=== PATIENT | male | born 2000 | race Caucasian/White ===

== ENCOUNTER 2021-04-22 17:24 | Inpatient (IN) ==
[2021-04-22] MEDS ORDERED: SODIUM CHLORIDE 0.9% 1000ML 2,000 ML IV ONE (17:45)
--- NOTE | 2021-04-22 18:07 | History & Physical Report ---
Date of Service April 22, 2021 Assessment & Plan (1) Exertional rhabdomyolysis: Plan: 21 yo male who comes in with exertional rhabdomyolysis after extensive weight training this past week. CK is over 20K Will place on IVF and monitor urine output and electrolytes Check CK in AM. History of Present Illness Chief Complaint: msucle pain. Primary Care Provider: Lurdes Whitehead, DO 21 yo male who has history of rhabdomyolisis. Patient had an episode of rhabdomyolysis in the past. Patient reports weight lifting this past week. Today he felt sore and decided to come into the ER. Allergies Allergy/AdvReac Type Severity Reaction Status Date / Time No Known Allergies Allergy Unverified 04/22/21 19:21 Home Medications Medication Instructions Recorded Confirmed Type hydroxyzine HCl 25 mg tablet 25 mg PO DAILY PRN 04/22/21 04/22/21 History Past Med/Surg History Medical History Anxiety History of rhabdomyolysis No pertinent family history Surgical History No pertinent past surgical history Social History Smoking Status: Current every day smoker Tobacco Type: E-cigarettes / Vaping Hx Alcohol Use: Yes Alcohol type: beer, wine and hard liquor Hx Substance Use: No Preferred Language: Kittitian Communication Ability: Effective Senior Communications Engineer Required: No Beliefs That Will Affect Care: None marital status: Single Current Living Situation: Alone Current Living Situation Comment: [employer] student, lives off campus in an apartment current occupational status: student Other Information That Helps Us Care for You: No Feels Safe at Home: Yes Safety Concerns: Feels Safe At This Time Assistive Devices: None Review of Systems Review of Systems: All systems reviewed & are unremarkable except as noted in HPI & below Physical Exam Constitutional: WD/WN, vitals as above Eyes: PERRL, conjunctivae normal, anicteric sclerae ENMT: external ear and nose normal, oropharynx normal Neck: trachea midline, no thyromegaly Respiratory: normal respiratory effort, lungs clear to auscultation Cardiovascular: RRR, no murmur, no edema Gastrointestinal (Abdomen): normal bowel sounds, soft, nontender, no hepatosplenomegaly Musculoskeletal: no cyanosis or clubbing, extremities motor strength 5/5 Skin: no rashes, warm and dry Neurologic: PERRL, EOMI, accommodation nl, no face palsy, no dysarthria Psychiatric: A+Ox3, euthymic affect Lymphatic: no cervical or axillary lymphadenopathy Results & Data Results & Data ([facility]) Vital Signs (Past 12 Hours) Vital Signs Temp Pulse Resp BP Pulse Ox 04/22/21 17:28 36.8 C 88 16 134/91 99 PG Care Time/CCT Total # of Minutes Spent Total Time Spent with Patient: Total time spent is greater than 50% in coordination of care (as documented) at patient's floor/unit and/or counseling patient: Coding Level of Care Code 74531 Initial Inpt Care Lvl 2 Diagnoses Exertional rhabdomyolysis M62.82
[2021-04-22] MEDS ORDERED: RACEPINEPHRINE 2.25% NEBU SOLN 0.5 ML VIAL ONE (18:46)
--- NOTE | 2021-04-22 19:29 | Emergency Department Note ---
History of Present Illness General Chief complaint: Abnormal Labs/Diagnostic Testing Stated complaint: ABNORMAL LABS Time Seen by Provider: 04/22/21 17:30 History of Present Illness Maximum Pain Intensity: 5 21-year-old male who presents to the emergency department for evaluation of possible rhabdomyolysis. The patient reports that he had some lab work done today that was abnormal with an elevated total creatinine kinase. These labs were ordered by [facility]. The patient reports that he last had rhabdomyolysis in June 2020 that required hospitalization for approximately 5 days. He is incidence of rhabdomyolysis at that time was caused by workouts. The patient reports that he has not done any significant workouts since last June, and started working out again 4 days ago. The patient did take a break on Monday, but continued with workouts on Monday. He reports lifting free weights, running and playing basketball. The patient reports overall generalized muscle cramps. He has not noticed any decreased urine output or dark appearance. He denies any focal abdominal pain, chest pain, shortness of breath or fevers. The patient rates his overall discomfort a 5 out of 10. Home Medications Medication Instructions Recorded Confirmed Type hydroxyzine HCl 25 mg tablet 25 mg PO DAILY PRN 04/22/21 04/22/21 History Allergies Allergy/AdvReac Type Severity Reaction Status Date / Time No Known Allergies Allergy Unverified 04/22/21 19:21 Past Med/Surg History Medical History Anxiety History of rhabdomyolysis No pertinent family history Surgical History No pertinent past surgical history Social History Smoking Status: Current every day smoker Tobacco Type: E-cigarettes / Vaping Hx Alcohol Use: Yes Alcohol type: beer, wine and hard liquor Hx Substance Use: No Preferred Language: Wolof Communication Ability: Effective Seed Service Advisor Required: No Beliefs That Will Affect Care: None marital status: Single Current Living Situation: Alone Current Living Situation Comment: [employer] student, lives off campus in an apartment current occupational status: student Other Information That Helps Us Care for You: No Feels Safe at Home: Yes Safety Concerns: Feels Safe At This Time Assistive Devices: None Review of Systems 10 system review was performed and was negative except for pertinent positives and negatives as indicated in history of present illness Physical Exam Vital Signs Vital Signs - 24 hr 04/22/21 17:28 Temperature 36.8 C Temperature Source Temporal Artery Scan Pulse Rate 88 Respiratory Rate 16 Respiratory Effort / Characteristics Non-Labored Spontaneous Respiratory Depth Normal Blood Pressure 134/91 Blood Pressure Mean 105 Pulse Oximetry 99 Oxygen Delivery Method Room Air Sepsis Recent Fever Within 48 Hours No Sepsis New/Unexplained Change in Mental Status N/A Sepsis Action Taken by Nursing No Action Required CONSTITUTIONAL: Healthy and well nourished. Alert and oriented X 3. Patient does not appear in any acute distress. HEENT: Normocephalic, atraumatic. Pupils equal, round and reactive. Mucous membranes are not dry. No scleral icterus or conjunctival injection/pallor. NECK: Full active range of motion without discomfort. LYMPHATICS: No cervical chain adenopathy. RESPIRATORY: Clear to auscultation bilaterally with no wheezing, crackles, rhonchi or stridor. CARDIOVASCULAR: Regular rate and rhythm with no murmurs, rubs or gallops. GASTROINTESTINAL: Bowel sounds present in all quadrants. Minimal and generalized abdominal tenderness to palpation. Negative CVA tenderness. No obvious hepatosplenomegaly. MUSCULOSKELETAL: Full range of motion of all joints without discomfort. INTEGUMENTARY: No rash or other significant dermatologic conditions noted. HEMATOLOGIC: No ecchymosis or petechiae. PSYCHIATRIC: Positive affect. NEUROLOGIC: No focal neurologic deficits noted. Course Course Patient history and physical exam were performed. Nurses notes were reviewed. Vital signs were reviewed and were normal. I did review previous outpatient labs that were completed this morning, showing elevated liver transaminases, with a total creatinine kinase of nearly 21,000. Urinalysis shows trace ketonuria and hematuria. Creatinine is normal. IV access was established, and the patient was hydrated with 2 L of normal saline. The case was further discussed with Dr. Mcgovern, ED attending physician[facility] and will be admitting the patient for rhabdomyolysis management. Please see their dictation for further treatment and final disposition. Administered Medications Lactated Ringer's (Lr) 1,000 mls @ 125 mls/hr IV .Q8H SUPRIYA Stop: 05/22/21 18:14 Last Admin: 04/22/21 19:57 Dose: 125 mls/hr Documented by: [id number] Discontinued Medications Epinephrine (Racepinephrine 2.25% Nebu Soln 0.5 Ml Vial) Confirm Administered Dose 0.5 ml .ROUTE .STK-MED ONE Stop: 04/22/21 18:47 Last Admin: 04/22/21 18:59 Dose: Not Given Documented by: [id number] Sodium Chloride (Nss 1000ml) 2,000 mls @ 999 mls/hr IV .Q2H1M ONE Stop: 04/22/21 19:45 Last Infusion: 04/22/21 20:21 Dose: 0 mls/hr Documented by: [id number] Admin: 04/22/21 18:21 Dose: 999 mls/hr Documented by: [id number] Medical Decision Making Medical Records Attestation: I reviewed the patient's medical records. Home Medications Current Medication List: was personally reviewed by me Laboratory Data Attestation: I reviewed the patient's lab results. Lab work from earlier today was reviewed, showing elevated total creatinine ki nase of nearly 21,000. Patient also has elevated liver transaminases. No evidence for acute kidney injury, electrolyte abnormality or leukocytosis, thrombocytopenia. Lab Results 04/22/21 Range/Units 19:30 SARS-CoV-2, RNA, NAAT NEGATIVE (NEGATIVE) Blood Pressure Blood Pressure Findings: Normal blood pressure MDM Narrative Patient presents the emergency department for evaluation of rhabdomyolysis. Patient does have an elevated total CK and liver transaminases, consistent with rhabdomyolysis. This was likely induced by his rather abrupt onset of workouts. The patient has had a prior history of rhabdomyolysis approximately 9 months ago. Operatory studies does not show evidence for acute kidney injury or other significant abnormalities. Impression & Plan Exertional rhabdomyolysis, Elevated liver enzymes, Elevated CPK, Myalgia Discharge Plan Visit Data Chief Complaint: Abnormal Labs/Diagnostic Testing Stated Complaint: ABNORMAL LABS ED Provider: Eliud Mcgovern ED Midlevel Provider: Jacky Powers Discharge Problem: Exertional rhabdomyolysis, Elevated liver enzymes, Elevated CPK, Myalgia Patient Disposition: Admitted As Inpatient Discharge Instructions Interventions: ED Discharge Assessment Last Done: 04/22/21 22:13
[2021-04-22] MEDS: LACTATED RINGER'S 1,000 ML IV SCH (19:57)
[2021-04-23] MEDS: LACTATED RINGER'S 1,000 ML IV SCH ×3 (03:10→18:35)
[2021-04-23 08:32] LABS: Anion Gap 4 (3-11); BUN Creatinine Ratio 9.6 (10-20); Blood Urea Nitrogen 7 mg/dl (6-23); Calcium 8.3 mg/dl (8.5-10.1); Carbon Dioxide 27 mmol/L (21-32); Chloride 110 mmol/L (98-107); Creatinine Clr Calc Pharmacy 139.2 ml/min; Est GFR (African American) > 150.0 ml/min; Est GFR (Non-African American) 132.6 ml/min; Glucose 83 mg/dl (70-99(Fasting)); Potassium 3.7 mmol/L (3.5-5.1); Sodium 141 mmol/L (136-145)
[2021-04-23 08:44] LABS: Creatine Kinase 21166 U/L (30-223)
[2021-04-23 10:45] LABS: Amphetamines+Metham, Urine Neg (Neg); Barbiturates, Urine Neg (Neg); Benzodiazepine, Urine Neg (Neg); Cocaine, Urine Neg (Neg); MDMA (Ecstacy), Urine Neg (Neg); Methadone, Urine Neg (Neg); Opiate, Urine Neg (Neg); Phencyclidine, Urine Neg (Neg)
[2021-04-23 15:03] LABS: BUN Creatinine Ratio 7.7 (10-20); Calcium 8.8 mg/dl (8.5-10.1); Creatinine Clr Calc Pharmacy 130.3 ml/min; Est GFR (African American) 149.6 ml/min; Potassium 4.1 mmol/L (3.5-5.1)
[2021-04-23 15:16] LABS: Albumin Globulin Ratio 1.7 (0.9-2); Albumin Level 3.8 gm/dl (3.4-5.0); Bilirubin,Total 0.4 mg/dl (0.2-1.0); Globulin 2.3 gm/dl (2.5-4.0); Magnesium 1.8 mg/dl (1.7-2.4); Phosphorus 4.2 mg/dl (2.5-4.9); Total Protein 6.1 gm/dl (6.0-8.3)
--- NOTE | 2021-04-23 17:03 | Hospitalist Progress Note ---
Date of Service April 23, 2021 Assessment & Plan (1) Exertional rhabdomyolysis: Plan: Patient is a 29-year-old male with a history of rhabdomyolysis, here with exertion rhabdomyolysis after lifting weights and a heavy workout 2 times this week. No history of rhabdomyolysis prior to 9 months ago, no other hospitalizations or major medical issues in his entire life Does report alcohol use has increased in the last year since he turned 21 with binge drinking for 5 times per week Potassium levels lower end of normal range on admission He drinks all water when he works out, but no electrolyte replacement CK 20,000 and now increased to 21,000 AST and ALT increased and also elevated slightly since previous No renal failure, electrolytes normal otherwise Do not suspect a genetic disorder or myopathy but could test for this as an outpatient-we will need genetic testing and muscle biopsy -Continue fluids with LR but increase 150 mL's per hour He is making plenty of urine -Follow CMP and CK again in the morning -Replace electrolytes as needed -Encouraged decreased intake of alcohol and increased intake of fluid with electrolytes during workout days (2) Elevated liver enzymes: Plan: As above, secondary to rhabdomyolysis Follow LFTs in the morning Plan: DVT prophylaxis-ambulation Disposition-continued stay, but could likely discharge to home with close outpatient follow-up if CPK trends down less than 10,000 Admission and Anticipated Discharge Date Admission Date: April 22, 2021 Subjective Patient feeling improved today, still some soreness in his muscles all over but not terrible. No swelling anywhere. Is urinating at least 20 times a day with very clear urine. Drinking lots of Powerade. No shortness of breath. No other complaints. Reports his workout was more than his usual as he tried to lift weights again for the first time in 9 months. Typically he can do core exercises and go running without any difficulties. Previous admission last year at outside hospital for rhabdomyolysis with CK 5000. No family history of rhabdomyolysis. Mom with Crohn's disease, dad with alcoholic liver cirrhosis, sister with MS Review of Systems Review of Systems: All systems reviewed & are unremarkable except as noted in HPI & below Physical Exam Constitutional: WD/WN, vitals as above Eyes: + anicteric sclerae ENMT: external ear and nose normal, oropharynx normal Neck: trachea midline, no thyromegaly Respiratory: normal respiratory effort, lungs clear to auscultation Cardiovascular: RRR, no murmur, no edema Chest (Breasts): Chest: normal inspection of chest Gastrointestinal (Abdomen): normal bowel sounds, soft, nontender, no hepatosplenomegaly Musculoskeletal: Extremities: extremities normal to inspection; no cyanosis and no clubbing Some mild tenderness to palpation in arms and legs and abdomen, no edema Skin: no rashes, warm and dry Neurologic: moves all extremities and awake; no focal motor deficits Psychiatric: A+Ox3, euthymic affect Lymphatic: no lymphedema Results & Data Results & Data ([facility]) Vital Signs (Past 12 Hours) Vital Signs Temp Pulse Resp BP Pulse Ox 04/23/21 15:33 36.8 C 78 16 129/70 99 04/23/21 07:46 36.4 C L 56 L 14 123/72 99 Laboratory Results 04/23/21 04/23/21 04/23/21 Range/Units 14:32 14:32 09:41 Sodium 142 (136-145) mmol/L Potassium 4.1 (3.5-5.1) mmol/L Chloride 108 H (98-107) mmol/L Carbon Dioxide 31 (21-32) mmol/L Anion Gap 3 (3-11) BUN 6 (6-23) mg/dl Creatinine 0.78 (0.6-1.4) mg/dl Est Cr Clr Drug Dosing 130.3 ml/min Est GFR ( Amer) 149.6 ml/min Est GFR (Non-Af Amer) 129.0 ml/min BUN/Creatinine Ratio 7.7 L (10-20) Glucose 78 (70-99(Fasting)) mg/dl Calcium 8.8 (8.5-10.1) mg/dl Phosphorus 4.2 (2.5-4.9) mg/dl Magnesium 1.8 (1.7-2.4) mg/dl Total Bilirubin 0.4 D (0.2-1.0) mg/dl AST 315 H (13-39) U/L ALT 78 H (7-52) U/L Alkaline Phosphatase 61 (34-104) U/L Total Creatine Kinase 85872 H (30-223) U/L Total Protein 6.1 (6.0-8.3) gm/dl Albumin 3.8 (3.4-5.0) gm/dl Globulin 2.3 L (2.5-4.0) gm/dl Albumin/Globulin Ratio 1.7 (0.9-2) TSH 2.434 (0.300-4.500) uIu/ml Urine Opiates Screen Neg (Neg) Ur Methadone, Qual Neg (Neg) Urine Barbiturates Neg (Neg) Ur Phencyclidine (PCP) Neg (Neg) U Amphetamin/Meth Scrn Neg (Neg) MDMA (Ecstasy) Screen Neg (Neg) U Benzodiazepines Scrn Neg (Neg) Ur Cocaine Metabolite Neg (Neg) U Marijuana (THC) Screen Neg (Neg) 04/23/21 Range/Units 07:31 Sodium 141 (136-145) mmol/L Potassium 3.7 (3.5-5.1) mmol/L Chloride 110 H (98-107) mmol/L Carbon Dioxide 27 (21-32) mmol/L Anion Gap 4 (3-11) BUN 7 (6-23) mg/dl Creatinine 0.73 (0.6-1.4) mg/dl Est Cr Clr Drug Dosing 139.2 ml/min Est GFR ( Amer) > 150.0 ml/min Est GFR (Non-Af Amer) 132.6 ml/min BUN/Creatinine Ratio 9.6 L (10-20) Glucose 83 (70-99(Fasting)) mg/dl Calcium 8.3 L (8.5-10.1) mg/dl Phosphorus (2.5-4.9) mg/dl Magnesium (1.7-2.4) mg/dl Total Bilirubin (0.2-1.0) mg/dl AST (13-39) U/L ALT (7-52) U/L Alkaline Phosphatase (34-104) U/L Total Creatine Kinase 07091 H (30-223) U/L Total Protein (6.0-8.3) gm/dl Albumin (3.4-5.0) gm/dl Globulin (2.5-4.0) gm/dl Albumin/Globulin Ratio (0.9-2) TSH (0.300-4.500) uIu/ml Urine Opiates Screen (Neg) Ur Methadone, Qual (Neg) Urine Barbiturates (Neg) Ur Phencyclidine (PCP) (Neg) U Amphetamin/Meth Scrn (Neg) MDMA (Ecstasy) Screen (Neg) U Benzodiazepines Scrn (Neg) Ur Cocaine Metabolite (Neg) U Marijuana (THC) Screen (Neg) PG Care Time/CCT Total # of Minutes Spent Total Time Spent with Patient: Total time spent is greater than 50% in coordination of care (as documented) at patient's floor/unit and/or counseling patient: Coding Level of Care Code 97664 Subseq Hosp Care Lvl 2 Diagnoses Exertional rhabdomyolysis M62.82 Elevated liver enzymes R74.8
[2021-04-24] MEDS: LACTATED RINGER'S 1,000 ML IV SCH ×4 (01:11→21:48)
[2021-04-24 06:52] LABS: Basophils # (auto) 0.02 K/uL (0-0.2); Basophils % (auto) 0.4 %; Eosinophils # (auto) 0.12 K/uL (0-0.5); Eosinophils % (auto) 2.2 %; Hematocrit (blood only) 36.2 % (42-52); Lymphocytes # (auto) 1.61 K/uL (1.2-3.4); Lymphocytes % (auto) 29.5 %; Mean Corpuscular Hemoglobin 29.4 pg (25-34); Mean Corpuscular Hgb Conc 33.1 g/dL (32-36); Mean Corpuscular Volume 88.7 fL (80-100); Mean Platelet Volume 9.5 fL (7.4-10.4); Monocytes # (auto) 0.42 K/uL (0.11-0.59); Monocytes % (auto) 7.7 %; Neutrophils # (auto) 3.29 K/uL (1.4-6.5); Neutrophils % (auto) 60.2 %; Platelet Count 288 K/uL (130-400); RDW Coefficient of Variation 13.3 % (11.5-14.5); RDW Standard Deviation 43.5 fL (36.4-46.3); Red Blood Count 4.08 M/uL (4.7-6.1); White Blood Count 5.46 K/uL (4.8-10.8)
[2021-04-24 07:23] LABS: Anion Gap 4 (3-11); BUN Creatinine Ratio 8.7 (10-20); Blood Urea Nitrogen 6 mg/dl (6-23); Calcium 8.7 mg/dl (8.5-10.1); Carbon Dioxide 28 mmol/L (21-32); Chloride 108 mmol/L (98-107); Creatinine Clr Calc Pharmacy 147.3 ml/min; Est GFR (African American) > 150.0 ml/min; Est GFR (Non-African American) 135.7 ml/min; Glucose 85 mg/dl (70-99(Fasting)); Potassium 3.9 mmol/L (3.5-5.1); Sodium 140 mmol/L (136-145)
[2021-04-24 07:48] LABS: Alanine Aminotransferase 85 U/L (7-52); Albumin Globulin Ratio 1.6 (0.9-2); Albumin Level 3.6 gm/dl (3.4-5.0); Alkaline Phosphatase 56 U/L (34-104); Aspartate Aminotransferase 326 U/L (13-39); Bilirubin,Total 0.5 mg/dl (0.2-1.0); Creatine Kinase 21734 U/L (30-223); Globulin 2.3 gm/dl (2.5-4.0); Magnesium 1.9 mg/dl (1.7-2.4); Phosphorus 4.5 mg/dl (2.5-4.9); Total Protein 5.9 gm/dl (6.0-8.3)
--- NOTE | 2021-04-24 15:45 | Hospitalist Progress Note ---
Date of Service April 24, 2021 Assessment & Plan (1) Exertional rhabdomyolysis: Plan: Patient is a 29-year-old male with a history of rhabdomyolysis, here with exertion rhabdomyolysis after lifting weights and a heavy workout 2 times this week. Exertional Rhabdo - CK appearing to just about peak, equivocal today at 21.7l - Continue fluids with LR but increase 150 mL's per hour - Voiding well - Cr stable -Follow CMP and CK again in the morning - Do not suspect a genetic disorder or myopathy but could test for this as an outpatient-we would need genetic testing and muscle biopsy. Outpt f/u. (2) Elevated liver enzymes: Plan: As above, secondary to rhabdomyolysis AST/ALT slight uptrend 04/24 Follow LFTs in the morning Plan: DVT prophylaxis-ambulation Disposition-continued stay, but could likely discharge to home with close outpatient follow-up if CPK trends down less than 10,000 Admission and Anticipated Discharge Date Admission Date: April 22, 2021 Subjective Seen at bedside. Some pain in biceps bilat, improved from prior. No shortness of breath, chest pain, leg pain, difficulty breathing. Urinating frequently, denies extremity swelling/feeling of fluid retention. Review of Systems Review of Systems: All systems reviewed & are unremarkable except as noted in Subjective Physical Exam Physical Exam: General: A&Ox3. NAD. Cooperative. HEENT: Atraumatic, normocephalic.Vision and hearing intact. Pulm: CTAB A&P. -wheezes, -rales, -rhonchi. Symmetrical chest rise. No increased work of breathing. No respiratory distress. Cardiac: RRR, -mrg. Radial pulses intact and symmetrical. Abdominal: Nontender, nondistended, soft. BS present. 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 Sensation to soft touch intact in hands and feet. Results & Data Results & Data ([facility]) Vital Signs (Past 12 Hours) Vital Signs Temp Pulse Resp BP Pulse Ox 04/24/21 14:52 36.4 C L 72 18 138/72 99 04/24/21 07:43 36.4 C L 60 15 114/71 97 PG Care Time/CCT Total # of Minutes Spent Total Time Spent with Patient: Total time spent is greater than 50% in coordination of care (as documented) at patient's floor/unit and/or counseling patient: Coding Level of Care Code 99086 Subseq Hosp Care Lvl 2 Diagnoses Exertional rhabdomyolysis M62.82 Elevated liver enzymes R74.8
[2021-04-25] MEDS: LACTATED RINGER'S 1,000 ML IV SCH ×4 (04:12→23:21)
[2021-04-25 08:26] LABS: Anion Gap 4 (3-11); BUN Creatinine Ratio 11.3 (10-20); Blood Urea Nitrogen 8 mg/dl (6-23); Calcium 8.9 mg/dl (8.5-10.1); Carbon Dioxide 29 mmol/L (21-32); Chloride 105 mmol/L (98-107); Creatinine Clr Calc Pharmacy 143.2 ml/min; Est GFR (African American) > 150.0 ml/min; Est GFR (Non-African American) 134.1 ml/min; Glucose 85 mg/dl (70-99(Fasting)); Potassium 4.2 mmol/L (3.5-5.1); Sodium 138 mmol/L (136-145)
[2021-04-25 09:02] LABS: Creatine Kinase 21355 U/L (30-223)
--- NOTE | 2021-04-25 14:13 | Hospitalist Progress Note ---
Date of Service April 25, 2021 Assessment & Plan (1) Exertional rhabdomyolysis: Plan: Patient is a 29-year-old male with a history of rhabdomyolysis, here with exertion rhabdomyolysis after lifting weights and a heavy workout 2 times this week. Exertional Rhabdo -CK remains elevated, equivocal today at 20 1.3K -Continue LR 150 cc/h Creatinine stable 0.71 - Voiding well -Follow CMP and CK again in the morning Given second episode of rhabdomyolysis would follow-up with outpatient for genetic testing/possible muscle biopsy for evaluation of recurrent rhabdo. On discharge should abstain from strenuous exercise for some reason for follow-up, and then once cleared by outpatient provider if exercising and should remain well-hydrated, avoid alcohol, and gradually increase weight/exertion at that time. (2) Elevated liver enzymes: Plan: As above, secondary to rhabdomyolysis AST/ALT slight uptrend 04/24 Repeat LFTs pending, CMP every morning with repeat CK tomorrow morning Plan: DVT prophylaxis-ambulation Disposition-continued stay while awaiting CK to downtrend. May consider discharge to outpatient follow-up once downtrending even if not yet normalized with close follow-up and outpatient rechecks Admission and Anticipated Discharge Date Admission Date: April 22, 2021 Subjective Seen at bedside. Overall feels well would like to go home, expresses some frustration that CK is not significantly downtrending yet. Is aware he must remain on fluids and in the hospital until he has a downtrending CK. Review of Systems Review of Systems: All systems reviewed & are unremarkable except as noted in Subjective Physical Exam Physical Exam: General: A&Ox3. NAD. Cooperative. HEENT: Atraumatic, normocephalic.Vision and hearing intact. Pulm: Symmetrical chest rise. No increased work of breathing. No respiratory distress. Abdominal: Nontender, nondistended, soft. BS present. Ext: Moving all extremities equally, sensation and strength grossly intact in all 4 extremities. Results & Data Results & Data ([facility]) Vital Signs (Past 12 Hours) Vital Signs Temp Pulse Resp BP Pulse Ox 04/25/21 07:48 36.9 C 70 18 144/85 H 99 PG Care Time/CCT Total # of Minutes Spent Total Time Spent with Patient: Total time spent is greater than 50% in coordination of care (as documented) at patient's floor/unit and/or counseling patient: Coding Level of Care Code 91082 Subseq Hosp Care Lvl 2 Diagnoses Exertional rhabdomyolysis M62.82 Elevated liver enzymes R74.8
[2021-04-26] MEDS: LACTATED RINGER'S 1,000 ML IV SCH ×3 (05:11→18:18)
[2021-04-26 06:35] LABS: Basophils # (auto) 0.02 K/uL (0-0.2); Basophils % (auto) 0.4 %; Eosinophils # (auto) 0.14 K/uL (0-0.5); Eosinophils % (auto) 2.5 %; Hematocrit (blood only) 36.9 % (42-52); Hemoglobin 12.5 g/dL (14.0-18.0); Lymphocytes # (auto) 1.84 K/uL (1.2-3.4); Lymphocytes % (auto) 32.2 %; Mean Corpuscular Hgb Conc 33.9 g/dL (32-36); Mean Corpuscular Volume 88.5 fL (80-100); Mean Platelet Volume 9.9 fL (7.4-10.4); Monocytes # (auto) 0.38 K/uL (0.11-0.59); Monocytes % (auto) 6.7 %; Neutrophils # (auto) 3.33 K/uL (1.4-6.5); Neutrophils % (auto) 58.2 %; Platelet Count 313 K/uL (130-400); RDW Coefficient of Variation 13.3 % (11.5-14.5); RDW Standard Deviation 43.1 fL (36.4-46.3); Red Blood Count 4.17 M/uL (4.7-6.1); White Blood Count 5.71 K/uL (4.8-10.8)
[2021-04-26 07:06] LABS: Anion Gap 6 (3-11); BUN Creatinine Ratio 13.2 (10-20); Blood Urea Nitrogen 10 mg/dl (6-23); Calcium 9.1 mg/dl (8.5-10.1); Carbon Dioxide 28 mmol/L (21-32); Chloride 106 mmol/L (98-107); Creatinine Clr Calc Pharmacy 133.7 ml/min; Est GFR (African American) > 150.0 ml/min; Est GFR (Non-African American) 130.4 ml/min; Glucose 78 mg/dl (70-99(Fasting)); Potassium 4.2 mmol/L (3.5-5.1); Sodium 140 mmol/L (136-145)
[2021-04-26 07:19] LABS: Alanine Aminotransferase 124 U/L (7-52); Albumin Globulin Ratio 1.6 (0.9-2); Albumin Level 3.8 gm/dl (3.4-5.0); Alkaline Phosphatase 57 U/L (34-104); Aspartate Aminotransferase 346 U/L (13-39); Bilirubin,Total 0.4 mg/dl (0.2-1.0); Globulin 2.4 gm/dl (2.5-4.0); Total Protein 6.2 gm/dl (6.0-8.3)
[2021-04-26 07:22] LABS: Creatine Kinase 20424 U/L (30-223)
--- NOTE | 2021-04-26 13:56 | Hospitalist Progress Note ---
Date of Service April 26, 2021 Assessment & Plan (1) Exertional rhabdomyolysis: Plan: Patient is a 29-year-old male with a history of rhabdomyolysis, here with exertion rhabdomyolysis after lifting weights and a heavy workout 2 times this week. Exertional Rhabdo -CK again up trended slightly last night to 24K, downtrending again this morning to 20.4. Patient with clinical resolution of his muscle pain. -Continue LR 150 cc/h. Encourage oral hydration. Creatinine stable - Voiding well -Continue to follow CMP and CK Given second episode of rhabdomyolysis would follow-up with outpatient for genetic testing/possible muscle biopsy for evaluation of recurrent rhabdo. On discharge should abstain from strenuous exercise for some reason for follow-up, and then once cleared by outpatient provider if exercising and should remain well-hydrated, avoid alcohol, and gradually increase weight/exertion at that time. (2) Elevated liver enzymes: Plan: As above, secondary to rhabdomyolysis AST/ALT gradual uptrend 04/24, 04/25, 04/26 Continue to trend, treatment as above Plan: DVT prophylaxis-ambulation Disposition-continued stay while awaiting CK and transaminases to downtrend. May consider discharge to outpatient follow-up once downtrending even if not yet normalized with close follow-up and outpatient rechecks Admission and Anticipated Discharge Date Admission Date: April 22, 2021 Jackson Hu is seen at the bedside today. Understandably frustrated by having to remain in the hospital as he feels well and his pain is completely resolved, but has seen his lab work and knows his transaminases have risen, and CK went up slightly last night before downtrending again this morning. Otherwise no new symptoms, no chest pain/chest pressure/difficulty breathing. Eating and drinking well. Review of Systems Review of Systems: All systems reviewed & are unremarkable except as noted in Subjective Physical Exam Physical Exam: General: A&Ox3. NAD. Cooperative. HEENT: Atraumatic, normocephalic.Vision and hearing intact. Cardiac: RRR, -MRG Pulm: Clear to auscultation bilaterally. Symmetrical chest rise. No increased work of breathing. No respiratory distress. Abdominal: Nontender, nondistended, soft. BS present. Ext: Moving all extremities equally, sensation and strength grossly intact in all 4 extremities. Results & Data Results & Data ([facility]) Vital Signs (Past 12 Hours) Vital Signs Temp Pulse Resp BP Pulse Ox 04/26/21 07:54 36.4 C L 54 L 14 114/64 98 PG Care Time/CCT Total # of Minutes Spent Total Time Spent with Patient: Total time spent is greater than 50% in coordination of care (as documented) at patient's floor/unit and/or counseling patient: Coding Level of Care Code 09549 Subseq Hosp Care Lvl 2 Diagnoses Exertional rhabdomyolysis M62.82 Elevated liver enzymes R74.8
[2021-04-27] MEDS: LACTATED RINGER'S 1,000 ML IV SCH ×3 (00:31→17:14)
[2021-04-27 09:07] LABS: Basophils # (auto) 0.02 K/uL (0-0.2); Basophils % (auto) 0.4 %; Eosinophils # (auto) 0.14 K/uL (0-0.5); Eosinophils % (auto) 3.1 %; Hematocrit (blood only) 38.1 % (42-52); Hemoglobin 12.7 g/dL (14.0-18.0); Immature Granulocytes # (auto) 0.01 K/uL (0.00-0.02); Immature Granulocytes % (auto) 0.2 %; Lymphocytes # (auto) 1.49 K/uL (1.2-3.4); Mean Corpuscular Hemoglobin 29.6 pg (25-34); Mean Corpuscular Hgb Conc 33.3 g/dL (32-36); Mean Corpuscular Volume 88.8 fL (80-100); Mean Platelet Volume 9.7 fL (7.4-10.4); Monocytes # (auto) 0.33 K/uL (0.11-0.59); Monocytes % (auto) 7.3 %; Neutrophils # (auto) 2.52 K/uL (1.4-6.5); Platelet Count 282 K/uL (130-400); RDW Coefficient of Variation 13.4 % (11.5-14.5); RDW Standard Deviation 43.5 fL (36.4-46.3); Red Blood Count 4.29 M/uL (4.7-6.1); White Blood Count 4.51 K/uL (4.8-10.8)
[2021-04-27 09:52] LABS: BUN Creatinine Ratio 12.7 (10-20); Calcium 9.2 mg/dl (8.5-10.1); Creatinine Clr Calc Pharmacy 128.7 ml/min; Est GFR (African American) 148.8 ml/min; Est GFR (Non-African American) 128.4 ml/min; Potassium 4.2 mmol/L (3.5-5.1)
[2021-04-27 10:08] LABS: Albumin Globulin Ratio 1.6 (0.9-2); Albumin Level 3.8 gm/dl (3.4-5.0); Bilirubin,Total 0.5 mg/dl (0.2-1.0); Globulin 2.4 gm/dl (2.5-4.0); Total Protein 6.2 gm/dl (6.0-8.3)
--- NOTE | 2021-04-27 17:10 | Hospitalist Progress Note ---
Date of Service April 27, 2021 Assessment & Plan (1) Exertional rhabdomyolysis: Plan: Patient is a 29-year-old male with a history of rhabdomyolysis, here with exertion rhabdomyolysis after lifting weights and a heavy workout 2 times this week. Exertional Rhabdo -CK did downtrend this morning to 13.7K, IV fluids were held and oral hydration was pushed with recheck in the afternoon. Unfortunately this has up trended to 16.1, necessitating further IV treatment and ongoing stay. We will continue IV fluids LR 125 cc overnight and recheck again in the morning. -Continue LR 150 cc/h. Encourage oral hydration. Creatinine stable - Voiding well -Continue to follow CMP and CK Given second episode of rhabdomyolysis will follow-up with outpatient for genetic testing/possible muscle biopsy for evaluation of recurrent rhabdo. On discharge should abstain from strenuous exercise for some reason for follow-up, and then once cleared by outpatient provider if exercising and should remain well-hydrated, avoid alcohol, and gradually increase weight/exertion at that time. (2) Elevated liver enzymes: Plan: As above, secondary to rhabdomyolysis AST/ALT gradual uptrend 04/24, 04/25, 04/26 LFTs downtrending 04/27 Plan: DVT prophylaxis-ambulation Disposition-continued stay while awaiting CK and transaminases to downtrend adequately on oral fluids. May consider discharge to outpatient follow-up once downtrending even if not yet normalized with close follow-up and outpatient rechecks Admission and Anticipated Discharge Date Admission Date: April 22, 2021 Jackson Hu is seen at the bedside today. Continues to feel well and asymptomatic, voiding well with no muscle soreness. CK did downtrend this morning substantially, fluids held to see if would continue to downtrend in afternoon while pushing orals. Unfortunately creatinine again up trended and remains greater than 10,000 that is dating ongoing IV fluids and stay. Review of Systems Review of Systems: All systems reviewed & are unremarkable except as noted in Subjective Physical Exam Physical Exam: General: A&Ox3. NAD. Cooperative. HEENT: Atraumatic, normocephalic.Vision and hearing intact. Cardiac: RRR, -MRG Pulm: Symmetrical chest rise. No increased work of breathing. No respiratory distress. Abdominal: Nontender, nondistended, soft. BS present. Ext: Moving all extremities equally, sensation and strength grossly intact in all 4 extremities. Results & Data Results & Data ([facility]) Vital Signs (Past 12 Hours) Vital Signs Temp Pulse Resp BP Pulse Ox 04/27/21 15:24 36.8 C 61 18 129/76 100 04/27/21 07:33 36.4 C L 61 18 118/70 99 PG Care Time/CCT Total # of Minutes Spent Total Time Spent with Patient: Total time spent is greater than 50% in coordination of care (as documented) at patient's floor/unit and/or counseling patient: Coding Level of Care Code 71717 Subseq Hosp Care Lvl 2 Diagnoses Exertional rhabdomyolysis M62.82 Elevated liver enzymes R74.8
[2021-04-28] MEDS: LACTATED RINGER'S 1,000 ML IV SCH ×2 (00:06→06:28)
[2021-04-28 08:20] LABS: Basophils # (auto) 0.03 K/uL (0-0.2); Basophils % (auto) 0.6 %; Eosinophils # (auto) 0.12 K/uL (0-0.5); Eosinophils % (auto) 2.3 %; Hematocrit (blood only) 40.8 % (42-52); Hemoglobin 13.7 g/dL (14.0-18.0); Immature Granulocytes # (auto) 0.01 K/uL (0.00-0.02); Immature Granulocytes % (auto) 0.2 %; Lymphocytes # (auto) 1.52 K/uL (1.2-3.4); Lymphocytes % (auto) 28.9 %; Mean Corpuscular Hemoglobin 29.7 pg (25-34); Mean Corpuscular Hgb Conc 33.6 g/dL (32-36); Mean Corpuscular Volume 88.3 fL (80-100); Mean Platelet Volume 9.8 fL (7.4-10.4); Monocytes # (auto) 0.37 K/uL (0.11-0.59); Neutrophils # (auto) 3.21 K/uL (1.4-6.5); Platelet Count 300 K/uL (130-400); RDW Coefficient of Variation 13.2 % (11.5-14.5); RDW Standard Deviation 42.6 fL (36.4-46.3); Red Blood Count 4.62 M/uL (4.7-6.1); White Blood Count 5.26 K/uL (4.8-10.8)
[2021-04-28 08:46] LABS: Anion Gap 5 (3-11); BUN Creatinine Ratio 13.3 (10-20); Blood Urea Nitrogen 10 mg/dl (6-23); Calcium 9.3 mg/dl (8.5-10.1); Carbon Dioxide 29 mmol/L (21-32); Chloride 105 mmol/L (98-107); Creatinine Clr Calc Pharmacy 135.5 ml/min; Est GFR (African American) > 150.0 ml/min; Est GFR (Non-African American) 131.1 ml/min; Glucose 80 mg/dl (70-99(Fasting)); Potassium 3.8 mmol/L (3.5-5.1); Sodium 139 mmol/L (136-145)
[2021-04-28 08:52] LABS: Alanine Aminotransferase 132 U/L (7-52); Albumin Globulin Ratio 1.6 (0.9-2); Albumin Level 4.1 gm/dl (3.4-5.0); Alkaline Phosphatase 60 U/L (34-104); Aspartate Aminotransferase 278 U/L (13-39); Bilirubin,Total 0.5 mg/dl (0.2-1.0); Globulin 2.6 gm/dl (2.5-4.0); Total Protein 6.7 gm/dl (6.0-8.3)
[2021-04-28 08:57] LABS: Creatine Kinase 12928 U/L (30-223)
--- NOTE | 2021-04-28 16:48 | Discharge Summary ---
Date of Service April 28, 2021 Admission HPI Per Admitting Provider 21 yo male who has history of rhabdomyolisis. Patient had an episode of rhabdomyolysis in the past. Patient reports weight lifting this past week. Today he felt sore and decided to come into the ER. Principal Diagnosis Exertional rhabdomyolysis Discharge Exam General: A&Ox3. NAD. Cooperative. HEENT: Atraumatic, normocephalic.Vision and hearing intact. Cardiac: RRR, -MRG Pulm: Symmetrical chest rise. No increased work of breathing. No respiratory distress. Abdominal: Nontender, nondistended, soft. BS present. Ext: Moving all extremities equally, sensation and strength grossly intact in all 4 extremities. Discharge Data Allergies Allergy/AdvReac Type Severity Reaction Status Date / Time No Known Allergies Allergy Unverified 04/22/21 19:21 Consultations 04/22/21 18:01 ED Decision to Admit Stat Hospital Course (1) Exertional rhabdomyolysis: Patient is a 29-year-old male with a history of rhabdomyolysis, here with exertion rhabdomyolysis after lifting weights and a heavy workout 2 times week of admission. CK peaked at 20 4K and then down trended. Patient was downtrending to 11 point 9K day of discharge in afternoon while on oral hydration only. It was recommended that patient remain until less than 10K, however patient was extremely anxious to get out of the hospital and had school limitations. On shared decision making fluids were discontinued, and he was followed for 12 hours on oral hydration with good UOP. He did continue to downtrend to to 11.9K on oral hydration only. On shared decision making patient was discharged to return home evening of 04/28 with instructions to drink a minimum of 60 ounces of water daily, with close outpatient follow-up of CK and knowledge that if he were to worsen he may need to return to the hospital. Patient was agreeable to this. Strict precautions including no exertion/exercise for 1 month, and must be cleared by outpatient provider prior to resuming. Patient was told to have strict avoidance of alcohol for 1 month, and until his liver enzymes have returned to normal and has had appropriate follow-up with his PCP thereafter. He is agreeable to this. Patient does have a 2 [address] to campus, recommended having a parking exception for medical necessity temporarily. Discussed at scheduling appointment for [facility], and patient will follow up with you with at bedtime for this tomorrow. Rhabdo summary: Peak ~24K, downtrending to ~11K at dc Alarcon score 3 points, low risk of /DAYTON requiring [employer]ER No Creatine elevation at any point No electrolyte derangements Adequate urine output with signs of hypervolemia To do as outpatient: 1. Repeat CMP/CK scheduled for 04/29 with [facility] 2. Patient has close follow-up with [facility] services. Appointment confirmed for 04/29/2021 at 11am at [facility] with Abilio Mclain. Providers phone number given to [facility] for any questions/signout if needed. 3. Routine follow-up being scheduled with patient's home PCP for within 1 to 2 weeks 4. Recommend outpatient genetic testing/biopsy evaluation given recurrent episode of rhabdomyolysis. 5. Recommend temporary parking permit for 1-4 [address] to [address] on campus, should not walk 2 miles to classes until recovered Exertional Rhabdo Peaked at around 24K. Gradually down trended, initially up trended on orals and was put back on aggressive fluid hydration. Day of discharge patient down trended in morning, IV fluids were held and patient was hydrated orally and 12- hour evening check continued to downtrend on orals. Was recommended to stay another day until it down trended less than 10, on shared decision making as above patient discharged with close follow-up and CK/LFT check within 24 hours. Strict exercise and alcohol avoidance as above. Creatinine stable, no elevations. No electrolyte disturbances -Did well through admission, no myalgias for 48-36 hours before discharge Given second episode of rhabdomyolysis will follow-up with outpatient for genetic testing/possible muscle biopsy for evaluation of recurrent rhabdo. On discharge should abstain from strenuous exercise for some reason for follow-up, and then once cleared by outpatient provider if exercising and should remain well-hydrated, avoid alcohol, and gradually increase weight/exertion at that time. (2) Elevated liver enzymes: -As above, secondary to rhabdomyolysis -AST/ALT gradual uptrend 04/24, 04/25, 04/26 -LFTs downtrending 04/27, equivocal 04/28 Strict alcohol avoidance, continue to follow as outpatient DVT prophylaxis-ambulation Total Time Total Time Spent Total Time Spent (In Minutes): Time spend day of discharge 60 minutes including direct patient care, documentation, review of labs and images, and coordination of care. Discharge Plan Discharge Items Patient Disposition: Home - Self-Care Reason For Visit: RHABDOMYOLISIS Discharge Diagnosis: Exertional Rhabdomyolisis Activity: Per Instructions section Non-emergency contact: Primary Care Provider Call non-emergency contact if: you have any medication questions, your symptoms worsen, your pain is not controlled and you have a fever Follow-up/Referrals: Lurdes Whitehead DO [Primary Care Provider] - Diet: Regular Addtl Attending Provider Instructions: You're seen in the hospital for exertional rhabdomyolysis. Your CK (creatinine kinase) was greater than 20,000 during admission. Your liver enzymes were mildly elevated during admission. Your creatinine gradually down trended, and was slightly above 10,000 but downtrending on oral hydration only at time of discharge. You're being discharged to follow-up with your PCP. It is critically important that you avoid exercise and other strenuous exertion for the next 4 weeks as this can cause your rhabdomyolysis to return or worsen. You were drinking water with good urine output and gradual downtrend of your CK at time of discharge. Please continue to drink a minimum of 60-80 ounces of water every day as this will protect your kidneys while your CK levels continue to downtrend. Your liver enzymes were elevated in the setting of rhabdomyolysis, this will need to be followed as outpatient. It is critically important to avoid alcohol at this time. Avoid any alcohol intake for 4 weeks, and until your liver enzymes returned to normal. A follow-up appointment has been scheduled for you with [facility] for tomorrow, 04/29/2021 at 10:50am with Dr. Paiz. This was discussed with [facility] by your hospitalist provider. You should have blood work performed at this visit. Please bring this record with you to that appointment. Please let them know that [place] [address] [place] [address], and then gradually down trended. Your liver numbers were AST 278/ALT 132 at discharge, this was equivocal from the prior day and will require additional follow-up and monitoring. Rhabdo summary Peak ~24K, downtrending to ~11K at dc Alarcon score 3 points, low risk of /DAYTON requiring VIDEO SYSTEM[employer]ER No Creatine elevation at any point No electrolyte derangements Good urine output on orals with no DAYTON and downtrending CK and no signs of hypervolemia at dc A follow-up appointment with your home PCP is also being scheduled as above. You should be seen within 1 to 2 weeks. If you develop any new or worsening symptoms including fever, chills, sweats, chest pain, chest pressure, difficulty breathing, uncontrolled nausea/vomiting, rash, wheezing, passing out or nearly passing out, bleeding, black/bloody bowel movements, or other new or concerning symptoms please call your primary care physician, or call 911 for re-evaluation in the emergency department if you are very concerned. Pending Studies at Discharge: Yes (Trend CK and CMP) Stand-Alone Forms: My [facility] Gotuit, Smoking Cessation Medications and DC Order Prescriptions: Continued hydroxyzine HCl 25 mg tablet 25 mg PO DAILY PRN (Reason: Anxiety) RF: 0 Discharge Orders: Discharge Order (Routine); Ordered 04/28/21 Ordered By: Issac Horton Admission Data Admit Date/Time: 04/22/21 18:13 Attending Provider: Issac Horton Admit Provider: Moshe Harden Primary Care Provider: Lurdes Whitehead Other Providers: Joe Guerrero Coding Level of Care Code D/C DAY MANAGEMENT >30 MINS Diagnoses Exertional rhabdomyolysis M62.82 Elevated liver enzymes R74.8
== END 2021-04-28 17:52 | disposition home or self-care (01) | DRG 558 ==
LOC: ED 17:24 → SUATTDRO 18:13 → 3N 18:13